=== PATIENT | female | born 1995 | race African-American/Black ===

== ENCOUNTER 2017-04-21 04:36 | Emergency (ER) | payer SELFPAY ==
[~2017-04-21] VITALS: Ht 167.6 cm; Wt 80.0 kg
[2017-04-21 04:36] VITALS: BP 120/71; PULSE 100; RESP 16; TEMP 98.2; O2SAT 100
[~2017-04-21 04:36] MED LIST: ALBU0.63 NEB; ALBU17I INH; ALBU1AER INH; ZOFR4TAB3 SL
[2017-04-21] MEDS ORDERED: metroNIDAZOLE 500 MG TAB PO ONE (05:30)
[2017-04-21] MEDS ORDERED: AZITHROMYCIN PWD FOR SUSP 1 GM PACKET PO ONE (05:30)
[2017-04-21] MEDS ORDERED: LIDOCAINE HCL 1% 50 ML VIAL IM ONE (05:30)
[2017-04-21 05:40] LABS: BLOOD, URINE NEG (NEG); GLUCOSE,URINE NEG (NEG); KETONE, URINE NEG (NEG); MUCUS URINE FEW /lpf (OCC); NITRITE,URINE NEG (NEG); SQUAMOUS EPITHELIAL CELL URINE 9 /hpf (0-5); URINE COLOR YELLOW (YELLW/STRAW)
--- NOTE | 2017-04-21 05:43 | PD ---
HPI Chief Complaint: Abdominal Pain Time Seen by Provider: 05:10 Travel History International Travel<30 days: No Contact w/Intl Traveler<30days: No Traveled to known affect area: No History of Present Illness HPI 21 yo F complains of suprapubic abdominal 4 days. She has a foul-smelling vaginal discharge. No abnormal vaginal bleeding. Last menstruation was about 10 days ago. She thinks she could be but is not sure. No nausea vomiting fever chills or diarrhea. Onset gradual. Timing constant. PFSH Past Medical History Asthma: Yes Heart Rhythm Problems: No Cardiovascular Problems: No Cystic Fibrosis: No Developmental Delay: No Diminished Hearing: No Gastrointestinal Disorders: No Genitourinary: No Headaches: No Hypertension: No Musculoskeletal: No Neurologic: No Reproductive: No Respiratory: Yes Immunizations Current: Yes Migraines: No Seizures: No Sickle Cell Disease: No Sleep Apnea: No Tetanus Vaccination: Unknown ?: Not LMP: 04/11/17 Past Surgical History Other Surgery: Yes (right thumb) Social History Alcohol Use: No Tobacco Use: No Substance Use: No Allergies-Medications (Allergen,Severity, Reaction): Coded Allergies: No Known Allergies (Verified Adverse Reaction, Unknown, 04/21/17) Reported Meds & Prescriptions Reported Meds & Active Scripts Active No Active Prescriptions or Reported Medications Review of Systems Except as stated in HPI: all other systems reviewed are Neg General / Constitutional: No: Fever Cardiovascular: No: Chest Pain or Discomfort Physical Exam Narrative GENERAL: 21-year-old female pleasant well-nourished well-developed acute distress PELVIC: Patient refused SKIN: Focused skin assessment warm/dry. HEAD: Atraumatic. Normocephalic. EYES: Pupils equal and round. No scleral icterus. No injection or drainage. ENT: No nasal bleeding or discharge. Mucous membranes pink and moist. NECK: Trachea midline. No JVD. CARDIOVASCULAR: Regular rate and rhythm. No murmur appreciated. RESPIRATORY: No accessory muscle use. Clear to auscultation. Breath sounds equal bilaterally. GASTROINTESTINAL: Abdomen soft, non-tender, nondistended. Hepatic and splenic margins not palpable. MUSCULOSKELETAL: No obvious deformities. No clubbing. No cyanosis. No edema. NEUROLOGICAL: Awake and alert. No obvious cranial nerve deficits. Motor grossly within normal limits. Normal speech. PSYCHIATRIC: Appropriate mood and affect; insight and judgment normal. Data Data Last Documented VS Vital Signs Date Time Temp Pulse Resp B/P (MAP) Pulse Ox O2 Delivery O2 Flow Rate FiO2 04/21/17 05:44 04/21/17 04:36 98.2 100 16 100 Room Air Vital signs reviewed Orders Orders Gc And Chlamydia Pcr (04/21/17 05:10) Wet Prep Profile (04/21/17 05:10) Ua Includes Microscopic (04/21/17 05:10) Ed Urine Pregnancytest Poc (04/21/17 05:10) Metronidazole (Flagyl) (04/21/17 05:30) Azithromycin Powd Pack (Zithromax Powd P (04/21/17 05:30) Lidocaine 1% Inj (50 Ml) (Xylocaine 1% I (04/21/17 05:30) Ceftriaxone Inj (Rocephin Inj) (04/21/17 05:30) Ed Discharge Order (04/21/17 05:44) Labs Laboratory Tests Test 04/21/17 05:15 Urine Color YELLOW Urine Turbidity HAZY Urine pH 6.0 Urine Specific [place] 1.031 Urine Protein TRACE mg/dL Urine Glucose (UA) NEG mg/dL Urine Ketones NEG mg/dL Urine Occult Blood NEG Urine Nitrite NEG Urine Bilirubin NEG Urine Urobilinogen 2.0 MG/DL Urine Leukocyte Esterase TRACE Urine RBC 1 /hpf Urine WBC 3 /hpf Urine Squamous Epithelial Cells 9 /hpf Urine Mucus FEW /lpf MDM Medical Decision Making Medical Screen Exam Complete: Yes Emergency Medical Condition: Yes Medical Record Reviewed: Yes Differential Diagnosis IUP, UTI, ectopic , ov torsion, appendicitis, TOA, cervicitis, BV, Trichomoniasis, ov cyst, hernia, mittelschmerz, pain from menstruation Narrative Course Empir[employer] coverage for patient who refused exam. Follow up [facility] department UPREG: negative Diagnosis Primary Impression: Vaginal discharge Referrals: [facility]. Additional Instructions: You have a choice when it comes to health care, and we are glad that you chose [facility]. Hopefully, we have met your expectations on today's visit. You are welcome to return to [facility] at any time, as we are committed to meeting the health care needs of our community. Scripts No Active Prescriptions or Reported Meds Disposition: 01 DISCHARGE HOME Condition: Hilton Moya MD Apr 21, 2017 05:43
[2017-04-22 02:40] LABS: CHLAMYDIA PCR NOT DETECTED (NOT DETECT); NEISSERIA PCR NOT DETECTED (NOT DETECT)
== END 2017-04-21 05:59 | disposition home or self-care (01) ==
LOC: NEPC 04:36
DX: N89.8 Other specified noninflammatory disorders of vagina (principal); J45.909 Unspecified asthma, uncomplicated
CPT/HCPCS: 81001; 84703; 87491; 87591; 99283